=== PATIENT | male | born 2000 ===

== ENCOUNTER 2023-02-23 06:08 | Emergency (ER) | payer OTHER, SELFPAY ==
[2023-02-23 06:25] VITALS: BP 108/60; PULSE 86; RESP 20; TEMP 37.1; O2SAT 99; BMI 17.4
[2023-02-23 06:38] LABS: MANUAL DIFF FLAG NO
[2023-02-23 06:44] LABS: Basophils Percent Auto 0.3 % (0-2); Eosinophils Absolute Auto 0.1 X10*3/uL (0.0-0.4); Eosinophils Percent Auto 0.8 % (0-4); Hematocrit 46.5 % (42.0-52.0); Hemoglobin 15.7 g/dl (14.0-18.0); Imm Gran Pct Auto 0.7 % (0.0-0.4); Lymphocytes Absolute Auto 1.4 X10*3/uL (1.2-4.9); Lymphocytes Percent Auto 9.6 % (20-40); Mean Corpuscular HGB Conc 33.8 g/dl (31.0-36.0); Mean Corpuscular Volume 88.9 fL (80.0-98.0); Mean Platelet Volume 9.6 fL (9.4-12.4); Monocytes Absolute Auto 0.9 X10*3/uL (0.1-1.2); Monocytes Percent Auto 6.3 % (2-11); Neutrophils Absolute Auto 11.7 x10*3/uL (2.0-8.3); Neutrophils Percent Auto 82.3 % (45-73); Platelet Count 307 X10*3/uL (160-400); Red Blood Count 5.23 X10*6/uL (4.60-5.80); Red Cell Distribution Width 12.5 % (11.0-16.0); White Blood Count 14.2 X10*3/uL (4.8-10.8)
[2023-02-23 06:55] LABS: Alanine Aminotransferase 26 U/L (0-40); Albumin Level 3.9 g/dL (3.5-5.0); Alkaline Phosphatase 65 U/L (39-117); Anion Gap 10 (12-20); Aspartate Amino Transferase 33 U/L (5-37); Bilirubin Total 0.3 mg/dL (0.0-1.0); Blood Urea Nitrogen 17 mg/dL (9-16); Calcium 8.9 mg/dL (8.4-10.2); Carbon Dioxide 27 mmol/L (22-29); Chloride 107 mmol/L (96-108); Estimated Glomerular Filt Rate > 60; Glucose Random 101 mg/dL (60-115); Lipase 15 U/L (8-78); Potassium 4.1 mmol/L (3.3-5.1); Sodium 140 mmol/L (135-145); Total Protein 6.9 g/dL (6.5-8.0)
[2023-02-23 09:42] VITALS: BP 103/59; PULSE 84; RESP 16; TEMP 37.1; O2SAT 97
--- NOTE | 2023-02-23 09:50 | PC.NURSE ---
talking, nausea, no vomiting at this time. no distress. breathing well
--- NOTE | 2023-02-23 10:04 | ED_ITS ---
HPI - General Adult General Chief complaint: Abdominal Pain Stated complaint: n/d Time Seen by Provider: 02/23/23 09:59 History of Present Illness HPI narrative: The patient is a generally healthy bennett who says that he has been having trouble with a sore throat for the last month. He says he was ultimately prescribed some antibiotics that he finished yesterday. He was feeling somewhat better but yesterday evening his girlfriend started having vomiting and diarrhea. Very early this morning the patient also developed nausea and vomiting and diarrhea. He vomited multiple times and had multiple episodes of diarrhea and felt so bad that he came to the hospital. He does not think he has had a fever. He has some abdominal discomfort. Related Data Previous Rx's Medication Instructions Recorded ondansetron 4 mg disintegrating 4 mg PO Q6H PRN nausea and 02/23/23 tablet vomiting #7 tabs Allergies Allergy/AdvReac Type Severity Reaction Status Date / Time No Known Allergies Allergy Verified 02/23/23 06:31 Review of Systems 2 Review of Systems: Yes all other systems are reviewed and are negative [facility] Social History Social History Smoked in Last 30 Days: No Use of substances other than those prescribed or required for medical reasons: No Advance Directives: No Advance Directives Information Provided: No Physical Exam ED Vital Signs: Vital Signs - 24 hr 02/23/23 06:25 02/23/23 09:42 02/23/23 12:50 Temperature 98.7 F 98.8 F 99.2 F Pulse Rate 86 84 97 Respiratory Rate 20 16 18 Blood Pressure 108/60 103/59 L 101/56 L Pulse Oximetry 99 97 98 Oxygen Delivery Method Room Air Room Air Room Air BMI result Body Mass Index 17.4 Const Other: The patient is awake, alert, pleasant, cooperative. He looks mildly under the weather but not acutely toxic. HENMT Other: Mucous membranes not obviously dry. Airway clear. Eyes Other: Pupils round equal, no scleral icterus Neck Other: Moving his neck easily Resp Other: Lungs are clear bilaterally Cardio Other: Regular rate and rhythm, no murmur GI Other: The abdomen is soft nontender Skin Other: Skin is pale and dry Neuro Other: The patient is awake, alert, pleasant, cooperative. Neurologically intact. Medications Administered Discontinued Medications Generic Name Dose Route Start Last Admin Trade Name Freq PRN Reason Stop Dose Admin Sodium Chloride 1,000 mls @ 999 mls/hr 02/23/23 10:15 02/23/23 12:23 Ns IV 02/23/23 11:15 Infused .Q1H1M DAX Infusion Ketorolac Tromethamine 15 mg 02/23/23 10:03 02/23/23 10:24 Ketorolac Tromethamine 15 Mg/Ml Vial IVPUSH 02/23/23 10:04 15 mg ONCE ONE Administration Metoclopramide HCl 10 mg 02/23/23 10:03 02/23/23 10:24 Metoclopramide Hcl 10 Mg/2 Ml Vial IVPUSH 02/23/23 10:04 10 mg ONCE ONE Administration Medical Decision Making Medical Decision Making MDM Narrative: Patient presents with vomiting and diarrhea. He says that his girlfriend had similar symptoms yesterday. This sounds very much like some kind of viral illness causing nausea, vomiting, diarrhea. The patient looks worn out and possibly dehydrated but his abdomen seems benign. He also says that he has been on antibiotics recently for sore throat but I have a very low suspicion for C diff given the prominence of vomiting as part of his symptoms and also the fact that his girlfriend had similar symptoms. He was treated symptomatically with IV fluids, ketorolac, and Reglan. He felt much better. He was tolerating veronica perfecto easily and seemed eager to go home. He was hungry. Lab Data 02/23/23 06:32 02/23/23 06:32 Labs: Lab Results 02/23/23 02/23/23 Range/Units 06:32 10:50 WBC 14.2 H (4.8-10.8) X10*3/uL RBC 5.23 (4.60-5.80) X10*6/uL Hgb 15.7 (14.0-18.0) g/dl Hct 46.5 (42.0-52.0) % MCV 88.9 (80.0-98.0) fL MCH 30.0 (27.0-33.0) pg MCHC 33.8 (31.0-36.0) g/dl RDW 12.5 (11.0-16.0) % Plt Count 307 (160-400) X10*3/uL MPV 9.6 (9.4-12.4) fL Immature Gran % (Auto) 0.7 H (0.0-0.4) % Neut % (Auto) 82.3 H (45-73) % Lymph % (Auto) 9.6 L (20-40) % Dewitt % (Auto) 6.3 (2-11) % Eos % (Auto) 0.8 (0-4) % Baso % (Auto) 0.3 (0-2) % Lymph # (Auto) 1.4 (1.2-4.9) X10*3/uL Dewitt # (Auto) 0.9 (0.1-1.2) X10*3/uL Eos # (Auto) 0.1 (0.0-0.4) X10*3/uL Baso # (Auto) 0.0 (0.0-0.2) X10*3/uL Abs Immat Gran (auto) 0.10 H (0.00-0.03) X10*3/uL Absolute Neuts (auto) 11.7 H (2.0-8.3) x10*3/uL Absolute Nucleated RBC 0.000 (0.0-0.012) X10*3/uL Nucleated RBC % (auto) 0.0 (0.0-0.2) /100WBC Sodium 140 (135-145) mmol/L Potassium 4.1 (3.3-5.1) mmol/L Chloride 107 (96-108) mmol/L Carbon Dioxide 27 (22-29) mmol/L Anion Gap 10 L (12-20) BUN 17 H (9-16) mg/dL Creatinine 0.71 (0.5-1.4) mg/dL Estim Creat Clear Calc 113.0 Estimated GFR > 60 Random Glucose 101 (60-115) mg/dL Calcium 8.9 (8.4-10.2) mg/dL Total Bilirubin 0.3 (0.0-1.0) mg/dL AST 33 (5-37) U/L ALT 26 (0-40) U/L Alkaline Phosphatase 65 (39-117) U/L Total Protein 6.9 (6.5-8.0) g/dL Albumin 3.9 (3.5-5.0) g/dL Lipase 15 (8-78) U/L Urine Color Yellow Urine Appearance Clear Urine pH >= 9.0 (5.0-9.0) Ur Specific [place] 1.025 (1.005-1.025) Urine Protein Trace (Neg-Trace) mg/dL Urine Glucose (UA) Negative (Negative) mg/dL Urine Ketones Negative (Negative) mg/dL Urine Blood Negative (Negative) Urine Nitrite Negative (Negative) Ur Leukocyte Esterase Negative (Negative) Urine RBC 0-2 (0-2) /HPF Urine WBC 0-5 (0-5) /HPF Ur Squamous Epith Cells 0-2 (0-2) /HPF Urine Bacteria None Seen (None Seen) Hyaline Casts 0-2 (0-2) /LPF C. difficile Tox B Gene NEGATIVE (Negative) Discharge Plan Discharge Clinical Impression: Nausea, vomiting, and diarrhea Patient Disposition: Home, Self-Care Instructions: Acute Nausea and Vomiting (ED) Additional Instructions: I suspect you have some kind of a viral illness causing vomiting and diarrhea. My hope is that this will only last a couple of days. I have sent a prescription for medication cold ondansetron (also known as Zofran) which you may use as needed for nausea every 8 hours. Do your best to take fluids. Eat simple foods like over-cooked rice or toast. Bananas are also good. Return to the emergency room if worse. Prescriptions: New ondansetron 4 mg tablet,disintegrating 4 mg PO Q6H PRN (Reason: nausea and vomiting) Qty: 7 0RF
[2023-02-23] MEDS: Ketorolac Tromethamine 15 MG/ML VIAL IVPUSH (10:24)
[2023-02-23] MEDS: Metoclopramide HCl 10 MG/2 ML VIAL IVPUSH (10:24)
[2023-02-23] MEDS: 0.9 % Sodium Chloride 1,000 ML 999 ML IV (10:25)
[2023-02-23 11:08] LABS: Appearance Urine Clear; Color Urine Yellow; Glucose Urine UA Negative (Negative); Leukocyte Esterase Urine Negative (Negative); Nitrite Urine Negative (Negative); PH >= 9.0 (5.0-9.0); Specific Gravity - Urine 1.025 (1.005-1.025); Urine Blood Negative (Negative); Urine Ketones Negative (Negative); Urine Protein Trace mg/dL (Neg-Trace)
[2023-02-23 11:10] LABS: Bacteria Urine None Seen (None Seen); Hyaline Casts Urine 0-2 /LPF (0-2); RBC Urine 0-2 /HPF (0-2); Squamous Epithelial Cell Urine 0-2 /HPF (0-2); WBC Urine 0-5 /HPF (0-5)
[2023-02-23 12:41] LABS: CDiff Gene PCR NEGATIVE (Negative)
[2023-02-23 12:50] VITALS: BP 101/56; PULSE 97; RESP 18; TEMP 37.3; O2SAT 98
== END 2023-02-24 05:41 | disposition home or self-care (01) ==
PROVIDERS: Emergency Provider Emergency Medicine
DX: R11.2 Nausea with vomiting, unspecified (principal); R19.7 Diarrhea, unspecified; Z79.899 Other long term (current) drug therapy
CPT/HCPCS: 36415; 80053; 81001; 83690; 85025; 87493; 96361; 96374; 96375; 99284; J1885; J2765

== ENCOUNTER 2023-09-22 11:15 | Emergency (ER) | payer OTHER, SELFPAY ==
[2023-09-22 11:20] VITALS: BP 103/55; PULSE 71; RESP 16; TEMP 36.6; O2SAT 98; BMI 20.4
--- NOTE | 2023-09-22 11:23 | ED.ANIMALBIT ---
HPI - Animal Bite General Chief Complaint: Animal Bite Stated Complaint: dog bite yesterday Time Seen by Provider: 09/22/23 11:27 Source: patient Mode of arrival: ambulatory Limitations: no limitations History of Present Illness ED Provider: Shirlene Dillard PA-C HPI narrative: 23 yo male presenting to the ER for evaluation of pain and swelling to his right hand after a Chihuahua he found on the street bit his hand. He states the animal appeared healthy but it was scared and crying. He picked it up and it bit his right hand. He brought it home where he cared for it and fed it. It appeared well cared for but did not have a collar. He states after the dog nipped his hand, he cleaned it out with soap and water. He brought the animal to [facility]. He woke up today with pain and swelling hear the dog bites. No drainage, fevers, or limited movement of the hand or digits. MD complaint: animal bite Onset (ago): day(s) (1) Animal: dog Description of animal: unknown animal, immunizations unknown and appeared well Mechanism: bite Location - Extremities: right: hand Pain description: dull Context: other (scared, lost dog) Associated symptoms: erythema Treatments prior to arrival: irrigation and antibiotic ointment Related Data Patient tetanus UTD: Yes Previous Rx's ?Medication ?Instructions ?Recorded ondansetron 4 mg disintegrating 4 mg PO Q6H PRN nausea and 02/23/23 tablet vomiting #7 tabs amoxicillin 875 mg-potassium 1 tab PO BID #14 tabs 09/22/23 clavulanate 125 mg tablet ibuprofen 600 mg tablet 600 mg PO Q8H PRN pain #10 tabs 09/22/23 Allergies Allergy/AdvReac Type Severity Reaction Status Date / Time No Known Allergies Allergy Verified 09/22/23 11:25 Review of Systems Review of Systems: Yes all other systems are reviewed and are negative PMFSH Social History Social History Advance Directives: No Do you have a plan to hurt others: No Plan Physical Exam ED Vital Signs: Vital Signs - 24 hr 09/22/23 11:20 Temperature 97.8 F Pulse Rate 71 Respiratory Rate 16 Blood Pressure 103/55 L Pulse Oximetry 98 Oxygen Delivery Method Room Air BMI result Body Mass Index 20.4 Appearance: Alert. Oriented X3. No acute distress. HEENT: normal inspection CVS: Normal heart rate and rhythm. Pulses normal. Respiratory: No respiratory distress. Skin: Skin warm and dry. Normal skin color. Normal skin turgor. No rashes. Extremities: right hand with 3 superficial puncture wound to the thenar eminance and base of the 1st digit. mild erythema and swelling. no drainage. FROM of all digits. no streaking up the arm. 2+ radial pulse. NV intact distally. Neuro: Oriented X 3. No motor deficit. No sensory deficit. Medical Decision Making Medical Decision Making MDM Narrative: 23 yo male presents to the ER for evaluation of red, swollen hand after being bite by a [place]ua yesterday. Unknown dog that is currently at animal control. Patient has some mild cellulitis at this time, no evidence of deep infection such as tenosynovitis,abscess or lymphangitis. He needs augment. TDAP UTD. Counseled on rabies vaccinations and he would like to defer at this time. he will follow up with animal control who is currently monitoring the dog. advised to come back to the ER if he changes his mind and would like to proceed with vaccination. also counsled on return precautions for worsening infection. stable for d/c home. Differential Diagnosis Differential Diagnoses: The differential diagnosis associated with the presentation includes dog bite, cellulitis, abscess, low suspicion for rabies External Record Review External record reviewed: Outpatient record and Prior outpatient labs Tests considered The following testing was considered but not selected: xr hand considered to r/o fx/bony involvement Prescription Management I considered prescription management with: Pain Medication and Antibiotic Critical Care Time Critical Care Time Critical Care Time: No Discharge Plan Discharge Clinical Impression: Dog bite Qualifiers: Encounter type: initial encounter Qualified Code(s): W54.0XXA - Bitten by dog, initial encounter Patient Disposition: Home, Self-Care Instructions: Animal Bite (ED) Additional Instructions: Take the prescribed antibiotics as directed, complete the entire course and do not miss any doses Use warm compresses or warm soapy soaks 2-3 times per day. Take the prescribed anti-inflammatory medication as needed for pain and swelling. Recommend calling Animal Control to get updates on the status and health of the dog. He needs to be monitored. If you decide to proceed with rabies vaccination, return to the ER or call your doctor. If you develop new or worsening symptoms call 911 or come back to the ER for further evaluation. Prescriptions: New amoxicillin-pot clavulanate 875-125 mg tablet 1 tab PO BID Qty: 14 0RF ibuprofen 600 mg tablet 600 mg PO Q8H PRN (Reason: pain) Qty: 10 0RF No Action ondansetron 4 mg tablet,disintegrating 4 mg PO Q6H PRN (Reason: nausea and vomiting) Qty: 7 0RF Discharge Date/Time: 09/22/23 11:33 Print Language: Azeri
== END 2023-09-22 11:33 | disposition home or self-care (01) ==
LOC: HO.ED 11:30
PROVIDERS: Emergency Provider Student in an Organized Health Care Education/Training Program
DX: S61.451A Open bite of right hand, initial encounter (principal); M79.641 Pain in right hand; W54.0XXA Bitten by dog, initial encounter; Y93.9 Activity, unspecified; Y92.9 Unspecified place or not applicable; Y99.8 Other external cause status
CPT/HCPCS: 99281; 99283

== ENCOUNTER 2023-09-22 22:26 | Emergency (ER) | payer OTHER, SELFPAY ==
[2023-09-22 22:29] VITALS: BP 95/62; PULSE 68; RESP 18; TEMP 36.8; O2SAT 98; BMI 17.8
--- NOTE | 2023-09-23 00:16 | ED_ITS ---
HPI - General Adult General Chief complaint: Animal Bite Stated complaint: Dog bite Time Seen by Provider: 09/23/23 00:08 Source: patient, RN notes reviewed and old records reviewed Mode of arrival: ambulatory Limitations: no limitations History of Present Illness ED Provider: [place] HPI narrative: 23-year-old male presents for evaluation of ?I would like the rabies vaccine. ? He was seen in this ER about 12 hours ago after being bitten by a dog on 09/21/2023 He was given Augmentin due to the dog bite on the right hand. His tetanus was up-to-date. Previous provider discussed rabies vaccination with the patient but he had declined at that time. The patient states that he change his mind and would like to have the rabies series He reports that the hand appears to be healing from his last visit He has less pain and more range of motion Related Data Previous Rx's ?Medication ?Instructions ?Recorded ondansetron 4 mg disintegrating 4 mg PO Q6H PRN nausea and 02/23/23 tablet vomiting #7 tabs amoxicillin 875 mg-potassium 1 tab PO BID #14 tabs 09/22/23 clavulanate 125 mg tablet ibuprofen 600 mg tablet 600 mg PO Q8H PRN pain #10 tabs 09/22/23 Allergies Allergy/AdvReac Type Severity Reaction Status Date / Time No Known Allergies Allergy Verified 09/22/23 22:33 Review of Systems Constitutional: Constitutional: Denies body ache(s), Denies chills and Denies fever(s) Musculoskeletal: Musculoskeletal: Reports arthralgias and Reports joint swelling Integumentary/Breasts: Skin/Breast: Reports wounds PMFSH Social History Social History Advance Directives: No Advance Directives Information Provided: Yes Do you have a plan to hurt others: No Plan Physical Exam ED Vital Signs: Vital Signs - 24 hr 09/22/23 22:29 Temperature 98.2 F Pulse Rate 68 Respiratory Rate 18 Blood Pressure 95/62 Pulse Oximetry 98 Oxygen Delivery Method Room Air BMI result Body Mass Index 17.8 Const General: healthy appearing, comfortable, no acute distress, alert and awake Nutritional Appearance: well nourished Orientation/consciousness: patient oriented x3 HENMT Head: Yes normocephalic and Yes atraumatic Eyes Eyelids: Yes eyelids normal Conjunctivae: conjunctivae normal Sclerae: sclerae normal Corneas: corneas normal Pupils: Equal, round and reactive pupils present EOM: EOMs intact bilaterally Neck Neck: Yes full ROM Resp Effort & Inspection: normal respiratory effort, able to speak in complete sentences and not labored Skin Other: Right hand with 3 puncture wounds to the thenar eminence in the base of the right 1st MTP joint. There is minimal erythema and edema, no drainage. No streaking erythema. The patient has full range of motion with flexion-extension of all digits the right hand and opposition of the thumb.. General skin exam: elasticity normal Neuro General: patient oriented x3 Cranial nerves: Yes Equal, round and reactive pupils present and Yes Bilaterally intact EOM present Cognition (Neuro): normal cognition Extrem Other: Moving all extremities well without any obvious deformities Medical Decision Making Medical Decision Making MDM Narrative: 23-year-old male presents for evaluation of a dog bite and rabies vaccine. He was seen in the ER yesterday and was offered rabies vaccination ultimately declined. The patient would now like to undergo the rabies series which will be ordered. He reports improvement in his bite. His tetanus is up-to-date and he is already on Augmentin Differential Diagnosis Differential Diagnoses: The differential diagnosis associated with the presentation includes Dog bite Rabies vaccine Reason exposure Cellulitis Discharge Plan Discharge Clinical Impression: Dog bite Patient Disposition: Home, Self-Care Instructions: Rabies (ED), Animal Bite (ED) Additional Instructions: Rabies follow up with the [facility] [place] [facility] Infusion Center: Upon discharge from the ED today, you will be contacted by the Infusion Center to schedule your follow up Rabies vaccines. You will need a total of 3 more injections. If for some reason you do not receive a call, please call the Infusion Center directly at [phone]. Follow up with your primary care provider after completion of the vaccine to have a titer drawn to ensure the vaccines effectiveness. Prescriptions: No Action amoxicillin-pot clavulanate 875-125 mg tablet 1 tab PO BID Qty: 14 0RF ibuprofen 600 mg tablet 600 mg PO Q8H PRN (Reason: pain) Qty: 10 0RF ondansetron 4 mg tablet,disintegrating 4 mg PO Q6H PRN (Reason: nausea and vomiting) Qty: 7 0RF Print Language: German
[2023-09-23 00:52] VITALS: BP 92/52; PULSE 65; RESP 16; O2SAT 98
[2023-09-23] MEDS: Rabies Immune Globulin/PF 900 UNIT/3 ML VIAL 997.9 UNIT IM (00:59)
[2023-09-23] MEDS: Rabies Vaccine, Human Diploid (Imovax) 1 ML VIAL IM (01:00)
--- NOTE | 2023-09-23 01:10 | PC.NURSE ---
Rabies Immune Globulin half administered by Syd ROLLE to bite site R. hand. rest administered to left deltoid per may. informed consent provided to patient. vaccine card filled out and provided to patient. animal bite form filled out and faxed to [facility]. pt verbalizes understanding d/c education to f/u with [facility] [place] [facility] for remaining vaccines.
[2023-09-23 01:11] VITALS: BP 92/52; PULSE 65; RESP 16; TEMP 37; O2SAT 98
== END 2023-09-23 01:12 | disposition home or self-care (01) ==
PROVIDERS: Emergency Provider Emergency Medicine
DX: S61.431A Puncture wound without foreign body of right hand, initial encounter (principal); W54.0XXA Bitten by dog, initial encounter; Y93.9 Activity, unspecified; Y92.9 Unspecified place or not applicable; Y99.9 Unspecified external cause status; Z20.3 Contact with and (suspected) exposure to rabies; Z23 Encounter for immunization
CPT/HCPCS: 90375; 90471; 90675; 96372; 99283; 99284

== ENCOUNTER 2024-05-21 16:54 | Emergency (ER) | payer MEDICAID, SELFPAY ==
[2024-05-21 17:10] VITALS: BP 108/73; PULSE 67; RESP 18; O2SAT 97; BMI 17.8
--- NOTE | 2024-05-21 17:12 | ED_ITS ---
HPI - General Adult General Chief complaint: Dental/Oral Stated complaint: Dental pain Time Seen by Provider: 05/21/24 17:15 Source: patient Mode of arrival: ambulatory Limitations: no limitations History of Present Illness ED Provider: Kesha Roberts PA-C HPI narrative: Patient is a 23 year old assigned male at with no reported medical history presenting to the emergency department today with right upper tooth pain. Patient states that over the last 3 days he has had right upper tooth pain. Patient denies any dizziness, lightheadedness, abdominal pain, nausea, vomiting, fever, chills, blurry vision, double vision, loss of vision, chest pain, difficulty breathing, shortness of breath, back pain, night sweats, pain with urination, increased urinary frequency, increased urinary urgency, blood in his urine or stool, syncope or a near syncopal episode, recent trauma or falls, bowel incontinence, bladder incontinence, or any other complaints at this time. Onset (ago): day(s) (3) Location: mouth and right Relieving factors: none Exacerbating factors: none Associated symptoms: denies other symptoms Treatments prior to arrival: other (Tylenol and ibuprofen) Related Data Previous Rx's ?Medication ?Instructions ?Recorded ondansetron 4 mg disintegrating 4 mg PO Q6H PRN nausea and 02/23/23 tablet vomiting #7 tabs amoxicillin 875 mg-potassium 1 tab PO BID #14 tabs 09/22/23 clavulanate 125 mg tablet ibuprofen 600 mg tablet 600 mg PO Q8H PRN pain #10 tabs 09/22/23 amoxicillin 875 mg tablet 875 mg PO BID 5 days #10 tabs 05/21/24 Allergies Allergy/AdvReac Type Severity Reaction Status Date / Time No Known Allergies Allergy Verified 05/21/24 17:11 Review of Systems 2 Constitutional: Constitutional: Reports no additional constitutional complaints, Denies chills, Denies fever(s) and Denies night sweats Eyes: Eyes: Reports no additional eye complaints, Denies blurry vision, Denies change in vision, Denies diplopia, Denies eye discharge, Denies loss of vision and Denies eye pain ENT: Denies dizziness Comments: right upper tooth pain Cardiovascular: Cardiovascular: Reports no additional cardiovascular complaints, Denies chest pain, Denies lightheadedness, Denies Loss of Consciousness and Denies dyspnea Respiratory: Respiratory: Reports no additional respiratory complaints and Denies dyspnea Gastrointestinal: Gastrointestinal: Reports no additional gastrointestinal complaints, Denies abdominal pain, Denies melena, Denies hematochezia, Denies change in bowel habits and Denies change in stool character Genitourinary: Genitourinary: Reports no additional male genitourinary complaints, Denies hematuria, Denies oliguria, Denies difficulty urinating, Denies dysuria, Denies urinary frequency, Denies urinary hesitancy, Denies urinary incontinence and Denies urinary urgency Musculoskeletal: Musculoskeletal: Reports no additional musculoskeletal complaints, Denies numbness and Denies tingling Neurologic: Denies dizziness, Denies loss of vision, Denies numbness and Denies tingling Psychiatric: Psychiatric: Reports no additional psychiatric complaints Endocrine: Endocrine: Reports no additional endocrine complaints Hematologic/Lymphatic: Hematologic/Lymphatic: Reports no additional hematologic/lymphatic complaints Allergic/Immunologic: Allergic/Immunologic: Reports no additional allergic/immunologic complaints PMFSH Past Medical History Attestation statement: The following information was validated with the patient. Source: old records reviewed and nursing notes reviewed Social History Social History Advance Directives: No Advance Directives Information Provided: No Physical Exam ED Vital Signs: Vital Signs - 24 hr 05/21/24 17:10 05/21/24 17:28 Temperature 98.3 F Pulse Rate 67 67 Respiratory Rate 18 18 Blood Pressure 108/73 108/73 Pulse Oximetry 97 97 Oxygen Delivery Method Room Air Room Air BMI result Body Mass Index 17.8 Const General: cooperative, no acute distress, alert and awake Nutritional Appearance: well nourished Orientation/consciousness: patient oriented x3 Limitations: no limitations [facility] Head: Yes normal to inspection and Yes atraumatic Ears: hearing grossly normal bilaterally and external ears normal General nose exam: Normal external nose present, no nasal discharge noted and no epistaxis Face and sinus: Yes normal facial exam, No abrasion and No laceration Mouth: Normal oral and palatal mucosa present, no drooling and no muffled voice Teeth and gingiva: dentition normal Teeth image: 2 1. erythema, swelling, no fluctuance Eyes General: appearance normal, both eyes and all related structures Periorbital: periorbital findings normal Eyelids: Yes eyelids normal Conjunctivae: conjunctivae normal Pupils: Equal, round and reactive pupils present EOM: EOMs intact bilaterally Neck Neck: Yes normal visual inspection, Yes full ROM and Yes no lymphadenopathy Chest Chest palpation & inspection: normal inspection of the chest Resp Effort & Inspection: normal respiratory effort and able to speak in complete sentences GI Inspection: Yes normal to inspection Neuro General: patient oriented x3, moves all extremities and CN's II-XI intact bilaterally Cranial nerves: Yes Equal, round and reactive pupils present Cognition (Neuro): normal cognition Extrem General: Yes normal to inspection, Yes full ROM and Yes capillary refill normal Psych Appearance: grossly normal Mental Status: mental status grossly normal Affect: normal affect Attitude: cooperative Thought process: Normal thought process present Thought content: Normal thought content present Insight: Good insight present (Psych) Medical Decision Making Medical Decision Making MDM Narrative: Patient is a 23 year old assigned male at with no reported medical history presenting to the emergency department today with right upper dental pain. Patient's physical exam showed minimal erythema and swelling to the right upper gums with no fluctuance and no area to drain. I explained my physical exam findings to the patient. I answered all questions asked by the patient. Patient's clinical presentation is most consistent with a dental infection and possible developing dental abscess. I stressed the importance of the patient taking his medication as directed (either prescribed or as the over the counter packaging recommends). I stressed the importance of the patient following up with his primary care provider and a dentist. I stressed the importance of the patient returning to the emergency department immediately if his symptoms were to worsen or if he were to develop any dizziness, shortness of breath, difficulty breathing, chest pain, blurry vision, loss of vision, nausea, vomiting, abdominal pain, fever, chills, back pain, or any other complaints. Patient verbalized agreement and understanding with this treatment plan and discharge. Differential Diagnosis Differential Diagnoses: The differential diagnosis associated with the presentation includes Dental pain Dental abscess Dental infection Admission/Observation Consideration of admission/observation: Escalation of care including admission/observation considered Patient would have been admitted to the hospital had his clinical presentation warranted hospital admission. Prescription Management I considered prescription management with: Antibiotic (patient prescribed an antibiotic for dental infection) Attestation Attending Attestation: I was personally present and available for consultation in the ED. I have reviewed everything on the chart that is available and agree with the documentation provided by the JIM including discussion about the assessment, treatment plan and discussion. Based on medical record the care appears appropriate. MD MARIO Wilson Emergency Medicine Discharge Plan Discharge Clinical Impression: Toothache, Dental abscess Patient Disposition: Home, Self-Care Instructions: Dental Abscess (ED), Toothache (ED) Additional Instructions: Follow up with your primary care provider and a dentist. Take your antibiotic as prescribed. Return to the emergency department immediately if your symptoms worsen or if you develop any numbness, tingling, dizziness, shortness of breath, difficulty breathing, chest pain, blurry vision, loss of vision, nausea, vomiting, abdominal pain, fever, chills, back pain, or any other complaints. Call or visit any of the clinics below to establish with a dentist: [facility] [address] [place] [address] [facility] [address] [place] [address] [facility] [address] [facility], [address] Sandip Malloy [address] [place] [address] [facility] [address] [place] [address] [facility] [address] [place] [address] [address] [place] [address] Please see the information below about our Patient Portal. If you are not yet enrolled in the [facility] Patient Portal, you will receive an enrollment email invitation following your visit to any [facility] setting. You may also self-enroll in the Patient Portal by visiting our website: [email or web address] The following information is required to access the Patient Portal: - Your [facility] Medical Record Number - Your personal home email address (must match what is in your electronic medical record, Registration staff can assist with this) - Name - Date of Capabilities of the Patient Portal: - Message some providers - View upcoming appointments - Access your health summary, medical history, and visit history - View current conditions and allergies - View procedure and lab results - View your medications, including guidelines, side effects, and precautions - Complete pre-appointment questionnaires requested by your provider - Ready summary reports of your office visits and procedures To access the Patient Portal Mobile Jim, follow these directions: - Search [employer] in the Jim Store or [employer] Store - Download the Jim - Search for [facility] - Enter your login/password Prescriptions: New amoxicillin 875 mg tablet 875 mg PO BID 5 Days Qty: 10 0RF No Action amoxicillin-pot clavulanate 875-125 mg tablet 1 tab PO BID Qty: 14 0RF ibuprofen 600 mg tablet 600 mg PO Q8H PRN (Reason: pain) Qty: 10 0RF ondansetron 4 mg tablet,disintegrating 4 mg PO Q6H PRN (Reason: nausea and vomiting) Qty: 7 0RF Referrals: [facility] Family Medicine [Provider Group] (Call to establish and follow up with a primary care provider. If you already have a primary care provider, please follow up with them.) [facility] Primary [facility] [Provider Group] (Call to establish and follow up with a primary care provider. If you already have a primary care provider, please follow up with them.) [facility] Primary [facility] [Provider Group] (Call to establish and follow up with a primary care provider. If you already have a primary care provider, please follow up with them.) [facility] Primary [facility] [Provider Group] (Call to establish and follow up with a primary care provider. If you already have a primary care provider, please follow up with them.) Interventions: ED Discharge Assessment Last Done: 05/21/24 17:28 Discharge Date/Time: 05/21/24 17:29 Print Language: Korean
[2024-05-21 17:28] VITALS: BP 108/73; PULSE 67; RESP 18; TEMP 36.8; O2SAT 97
== END 2024-05-21 17:29 | disposition home or self-care (01) ==
PROVIDERS: Emergency Provider Emergency Medicine
DX: K04.7 Periapical abscess without sinus (principal); K08.89 Other specified disorders of teeth and supporting structures
CPT/HCPCS: 99282; 99283

== ENCOUNTER 2024-05-22 05:47 | Emergency (ER) | payer BC, SELFPAY ==
[2024-05-22 05:49] VITALS: BP 108/69; PULSE 54; RESP 16; TEMP 36.2; O2SAT 100; BMI 18.8
--- NOTE | 2024-05-22 06:41 | ED_ITS ---
HPI - General Adult General Chief complaint: Dental/Oral Stated complaint: dental pain Time Seen by Provider: 05/22/24 06:31 Source: patient, RN notes reviewed and old records reviewed Mode of arrival: ambulatory Limitations: no limitations History of Present Illness ED Provider: [facility] narrative: Patient is a 23-year-old male presenting to the emergency department with complaint of severe right lower dental pain. Reports that he has previously had a root canal and crown to the affected tooth. Seen in this ED yesterday for same complaint and started on amoxicillin, has taken two doses so far. Using OTC pain medications without relief. Denies any discharge or drainage from area, denies fevers. Does not currently have a dentist but is planning to follow up first thing tomorrow morning. MD complaint: dental pain Onset (ago): day(s) Location: mouth Radiation: non-radiation Severity: severe Quality: aching Pain Consistency: constant Relieving factors: none Exacerbating factors: eating Associated symptoms: denies other symptoms Treatments prior to arrival: NSAID Related Data Previous Rx's ?Medication ?Instructions ?Recorded ondansetron 4 mg disintegrating 4 mg PO Q6H PRN nausea and 02/23/23 tablet vomiting #7 tabs amoxicillin 875 mg-potassium 1 tab PO BID #14 tabs 09/22/23 clavulanate 125 mg tablet ibuprofen 600 mg tablet 600 mg PO Q8H PRN pain #10 tabs 09/22/23 amoxicillin 875 mg tablet 875 mg PO BID 5 days #10 tabs 05/21/24 morphine 15 mg immediate release 15 mg PO Q8H PRN severe pain 05/22/24 tablet (scale score 7-10) #8 tabs Allergies Allergy/AdvReac Type Severity Reaction Status Date / Time No Known Allergies Allergy Verified 05/22/24 05:51 Review of Systems 2 Review of Systems: As per HPI Yes all other systems are reviewed and are negative Constitutional: Constitutional: Reports as per HPI [facility] Social History Social History Advance Directives: No Advance Directives Information Provided: Yes Do you have a plan to hurt others: No Plan Physical Exam ED Vital Signs: Vital Signs - 24 hr 05/22/24 05:49 Temperature 97.2 F Pulse Rate 54 Respiratory Rate 16 Blood Pressure 108/69 Pulse Oximetry 100 Oxygen Delivery Method Room Air BMI result Body Mass Index 18.8 Vital signs have been reviewed and appear to be correct. Blood pressure normal. Heart rate normal. Respiratory rate normal. Temperature normal. Oxygen saturation normal. Const General: cooperative, healthy appearing and no acute distress Orientation/consciousness: oriented to person, oriented to place, oriented to time and patient oriented x3 Limitations: no limitations HENMT Head: Yes normocephalic and Yes atraumatic Ears: external ears normal General nose exam: Normal external nose present Face and sinus: Yes face symmetric Mouth: Normal oral and palatal mucosa present, lip normal, tongue normal, oropharynx normal, moist mucous membranes, no drooling and no trismus Teeth and gingiva: dentition normal Teeth image: 2 1. minimal gingival erythema, no edema or fluctuance, no drainage, crown intact Throat: Yes posterior oropharynx normal, Yes uvula midline and No uvular edema Eyes Pupils: Equal, round and reactive pupils present Neck Neck: Yes normal visual inspection, Yes no lymphadenopathy and Yes supple Resp Effort & Inspection: normal respiratory effort and able to speak in complete sentences Auscultation: clear to auscultation bilaterally Cardio Rate: regular rate Rhythm: regular rhythm Heart sounds: S1 normal heart sound present and S2 normal heart sound present GI Palpation (GI): Soft to palpation and nontender Auscultation: normoactive bowel sounds General: Yes no CVA tenderness Back/Spine/Pelvis Back: no CVA tenderness Skin General skin exam: elasticity normal and turgor normal Neuro General: oriented to person, oriented to place, oriented to time, patient oriented x3, moves all extremities, no focal motor deficits and CN's II-XI intact bilaterally Cranial nerves: Yes Equal, round and reactive pupils present Cognition (Neuro): normal cognition Extrem General: Yes full ROM, Yes no pedal edema and Yes no calf tenderness Psych Mental Status: mental status grossly normal Affect: normal affect Thought process: Normal thought process present Medical Decision Making Medical Decision Making MDM Narrative: Patient is a 23-year-old male presenting to the emergency department with complaint of severe right lower dental pain. On exam patient is awake, A+Ox3, VS WNL, afebrile, normal neurological exam without focal deficits, physical exam findings as above. Given reported symptoms and physical exam findings, initial differential includes but is not limited to dental pain, dental infection, dental abscess. No findings on physical exam concerning for Keith's angina. Patient is already on antibiotics, has only taken two doses. No concerns on review of [employer]. Will send prescription for morphine for severe pain. Patient provided with list of dental clinics and advised to call first thing tomorrow morning. Return precautions discussed at bedside. Patient verbalized understanding of and agreement with plan. Differential Diagnosis Differential Diagnoses: The differential diagnosis associated with the presentation includes As per [facility] External Record Review External record reviewed: Inpatient record, Office record and Outpatient record Prescription Management I considered prescription management with: Pain Medication Discharge Plan Discharge Clinical Impression: Pain, dental Patient Disposition: Home, Self-Care Instructions: Toothache (ED) Additional Instructions: You were evaluated in the emergency department today for complaint of dental pain. You are currently being treated for a dental infection with antibiotics. Please complete the full course of antibiotics as prescribed even if your symptoms improve. IT IS IMPORTANT THAT YOU FOLLOW UP WITH A DENTIST SOON POSSIBLE. We recommend that you take 600 mg of ibuprofen or 650 mg Tylenol every 6 hours as needed for pain. If necessary, you can alternate these medications every 3 hours. For example, at 9:00 a.m. take Tylenol, then at noon take ibuprofen, then at 3:00 p.m. take Tylenol, etc.. You are being prescribed a short course of morphine for severe pain. Do not take this medication with alcohol or while operating heavy machinery as it can cause excessive drowsiness. Return to the emergency department if you develop worsening pain, swelling, difficulty swallowing, difficulty breathing, fever, or any other concerning symptoms. Call or visit any of the clinics below to establish care with a dentist: [facility] [address] [place] [address] [facility] [address] [facility], [address] Sandip Malloy [address] [place] [id number] [facility] [address] [place] [address] [address] [place] [address] [facility] [address] [place] [address] [place] [address] [place] [address] Prescriptions: New morphine 15 mg tablet 15 mg PO Q8H PRN (Reason: severe pain (scale score 7-10)) Qty: 8 0RF Rx Instructions: Partial Fill upon patient request. No Action amoxicillin-pot clavulanate 875-125 mg tablet 1 tab PO BID Qty: 14 0RF ibuprofen 600 mg tablet 600 mg PO Q8H PRN (Reason: pain) Qty: 10 0RF ondansetron 4 mg tablet,disintegrating 4 mg PO Q6H PRN (Reason: nausea and vomiting) Qty: 7 0RF amoxicillin 875 mg tablet 875 mg PO BID 5 Days Qty: 10 0RF Print Language: Turkmen
[2024-05-22 06:55] VITALS: BP 99/60; PULSE 62; RESP 18; TEMP 36.6; O2SAT 99
[2024-05-22 07:12] VITALS: BP 99/60; PULSE 62; RESP 18; TEMP 36.6; O2SAT 99
== END 2024-05-22 07:13 | disposition home or self-care (01) ==
PROVIDERS: Emergency Provider Internal Medicine
DX: K08.89 Other specified disorders of teeth and supporting structures (principal)
CPT/HCPCS: 99283